=== PATIENT | female | born 1990 | race Caucasian/White ===

== ENCOUNTER 2017-03-30 15:51 | Emergency (ER) | payer OTHER ==
[~2017-03-30] VITALS: Ht 172.7 cm; Wt 61.5 kg
[2017-03-30 15:53] VITALS: BP 124/86; PULSE 99; RESP 16; TEMP 98.4; O2SAT 99
--- NOTE | 2017-03-30 16:06 | PD ---
Physical Exam Time Seen by Provider: 16:05 Narrative 26 y/o female 11 weeks here requesting refill of subutex. Requesting to see Dr. Parker. Vital signs reviewed. Seen at triage desk. Awaiting bed placement. Data Data Last Documented VS Vital Signs Date Time Temp Pulse Resp B/P Pulse Ox O2 Delivery O2 Flow Rate FiO2 03/30/17 15:53 98.4 99 16 124/86 99 MDM Medical Record Reviewed: Yes Supervised Visit with SABRA: Ac Grajeda Mar 30, 2017 16:06
== END 2017-03-30 18:35 | disposition left against medical advice (07) ==
LOC: NED 15:51
DX: Z76.0 Encounter for issue of repeat prescription (principal); Z33.1 Pregnant state, incidental
CPT/HCPCS: 99281